=== PATIENT | female | born 1940 | race Caucasian/White ===

== ENCOUNTER 2018-08-05 15:15 | Inpatient (IN) | payer MEDICARE, OTHER ==
[2018-08-05 16:09] LABS: ADD MAN DIFF? NO
[2018-08-05 16:12] LABS: ABNORMAL IP MESSAGE 1; BASOPHILS % 0.3 % (0.0-2.0); EOSINOPHILS % 0.2 % (0.0-7.0); HEMATOCRIT 38.9 % (37.0-47.0); HEMOGLOBIN 10.8 g/dl (12.0-16.0); LYMPHOCYTES # 1.4 10^3/ul (0.8-2.9); LYMPHOCYTES % 12.7 % (15.0-51.0); MEAN CORPUSCULAR HEMOGLOBIN 28.3 pg (29.0-33.0); MEAN CORPUSCULAR HGB CONC 27.8 g/dl (32.0-37.0); MEAN CORPUSCULAR VOLUME 102.1 fl (82.0-101.0); MEAN PLATELET VOLUME 10.1 fl (7.4-10.4); MONOCYTES % 8.6 % (0.0-11.0); NEUTROPHIL # 8.8 10^3/ul (1.6-7.5); NEUTROPHILS % 77.4 % (39.0-77.0); NUCLEATED RED BLOOD CELLS% 0.3 /100WBC (0.0-0.0); PLATELET COUNT 309 10^3/UL (140-415); RED BLOOD COUNT 3.81 10^6/ul (4.20-5.40); RED CELL DISTRIBUTION WIDTH 14.3 % (11.5-14.5)
[2018-08-05 16:12] LABS: WHITE BLOOD COUNT 11.4 10^3/ul (4.8-10.8)
[2018-08-05 16:17] LABS: BLOOD UREA NITROGEN 25 mg/dl (7-20); CALCIUM 9.4 mg/dl (8.4-10.2); CHLORIDE 92 mmol/L (97-110); CREATININE 0.65 mg/dl (0.44-1.00); GLUCOSE 145 mg/dl (70-220); POTASSIUM 4.1 mmol/L (3.5-5.1); SODIUM 144 mmol/L (135-144)
[2018-08-05 16:18] LABS: POSITIVE DIFF @See below
[2018-08-05] MEDS: IPRATROPIUM (NEB) 0.5 MG/2.5 ML AMP INH (16:23)
[2018-08-05] MEDS: ALBUTEROL 0.083% (NEB) 2.5 MG/3 ML AMP INH (16:23)
[2018-08-05 16:29] LABS: B-TYPE NATRIURETIC PEPTIDE 7770 PG/ML (0-450); TROPONIN-I 0.016 ng/ml (0.000-0.120)
[2018-08-05 16:34] LABS: ANION GAP 3 (5-13); CARBON DIOXIDE 49 mmol/L (21-31)
[2018-08-05 16:43] LABS: MODE NASAL CANNULA; MetHgb Venous 0.1 %; Sample Type Blood venous; Site OTHER; Venous COHb 1.3 %; Venous Fraction OxyHgb 96.4 %; Venous Oxygen Sat 97.8 mmHG (55.0-75.0)
[2018-08-05 16:53] LABS: LACTIC ACID 0.8 mmol/L (0.5-2.0)
[2018-08-05 18:05] LABS: MODE NASAL CANNULA; MetHgb Venous 0.1 %; Sample Type Blood venous; Site OTHER; Venous COHb 1.3 %; Venous Fraction OxyHgb 96.4 %; Venous Oxygen Sat 97.8 mmHG (55.0-75.0)
[2018-08-05] MEDS ORDERED: GLUCAGON 1 MG INJ IM (19:00)
[2018-08-05] MEDS ORDERED: VANCOMYCIN IV PER PHARMACY XX (19:00)
[2018-08-05] MEDS ORDERED: LORAZEPAM 2 MG INJ IV (19:00)
[2018-08-05] MEDS ORDERED: DEXTROSE 50% 50 ML SYRINGE IV ×2 (19:00)
[2018-08-05] MEDS ORDERED: NITROGLYCERIN (SL) 0.4 MG TAB SL (19:00)
[2018-08-05] MEDS ORDERED: GLUCOSE GEL 15 GRAM TUBE PO ×2 (19:00)
[2018-08-05] MEDS ORDERED: NACL 0.9% 3 ML SYG IV (19:00)
[2018-08-05] MEDS ORDERED: ACETAMINOPHEN 325 MG TAB PO ×2 (19:00)
[2018-08-05] MEDS ORDERED: GLUCOSE GEL 15 GRAM TUBE BUCCAL (19:00)
[2018-08-05] MEDS ORDERED: DOCUSATE SODIUM 100 MG CAP PO (19:00)
[2018-08-05] MEDS ORDERED: morphine 2 MG INJ IV (19:00)
[2018-08-05] MEDS ORDERED: ONDANSETRON 4 MG INJ IV ×3 (19:00→22:00)
[2018-08-05] MEDS ORDERED: ALBUTEROL/IPRATROPIUM (NEB) 3 ML AMP HHN (19:00)
[2018-08-05] MEDS ORDERED: MAGNESIUM HYDROXIDE 30ML CUP PO (19:00)
[2018-08-05 19:08] LABS: LACTIC ACID 1.3 mmol/L (0.5-2.0)
[2018-08-05 19:14] LABS: FREE T4 (FREE THYROXINE) 0.78 ng/dl (0.78-2.44)
[2018-08-05] MEDS: PIPER-TAZO 2.25 GM (PMX) 50 ML IVPB (19:27)
[2018-08-05 19:34] LABS: AADO2 Arterial 56.2 mmHg (7.0-24.0); Allen Test ACCEPTAB; Arterial Base Excess 20.1 mmol/L (-3.0-3); Arterial Blood Gas Oxygen Sat 94.4 mmHG (95.0-100.0); Arterial COHb 1.1 % (0.0-3.0); Arterial Fraction of Oxyhgb 93.4 % (93.0-99.0); Arterial HCO3 48.7 mmol/L (22.0-26.0); Arterial MetHb 0 % (0.0-1.5); Arterial pCO2 80.1 mmhg (35-45); Blood Gas IEPAP 18/5; MODE MASK - BIPAP; Site Left Radial
[2018-08-05] MEDS: HYDROCODONE/APAP (5/325) TAB PO (19:37)
[2018-08-05] MEDS: SOD CHLORIDE 0.45% 1,000 ML IV (19:38)
[2018-08-05] MEDS ORDERED: NON-FORMULARY/PATIENT OWN MED (Lactobacillus Acidophilus/Pect (Acidophilus-Pectin Capsule) PO (21:00)
[2018-08-05] MEDS ORDERED: INSULIN GLARGINE [LANtus] 3 ML PEN SC (21:00)
[2018-08-05] MEDS: LACTOBACILLUS RHAMNOSUS CAP PO (22:46)
[2018-08-05] MEDS: ATORVASTATIN 20 MG TAB PO (22:46)
[2018-08-05] MEDS: APIXABAN 5 MG TABLET PO (22:46)
[2018-08-05] MEDS: INSULIN ASPART [NOVOLOG] 3 ML PEN SC (22:58)
[2018-08-05] MEDS: VANCOMYCIN HCL 2 GM in SOD CHLORIDE 0.9% 500 ML IVPB (23:11)
[2018-08-05] MEDS: INSULIN GLARGINE [LANTus] (100 UNITS/ML) SYG SC (23:24)
[2018-08-05] MEDS: DEXTROSE 5%-0.45% NACL 1,000 ML IV (23:48)
[2018-08-06] MEDS: PIPER-TAZO 2.25 GM (PMX) 50 ML IVPB ×5 (00:51→23:43)
[2018-08-06] MEDS: INSULIN ASPART [NOVOLOG] 3 ML PEN SC ×6 (00:56→21:31)
[2018-08-06] MEDS: ACCU-CHEK XX (02:00)
[2018-08-06] MEDS: LEVOTHYROXINE 25 MCG TAB PO (06:15)
[2018-08-06 06:54] LABS: ADD MAN DIFF? NO
[2018-08-06 06:56] LABS: ABNORMAL IP MESSAGE 1; BASOPHILS % 0.3 % (0.0-2.0); EOSINOPHILS % 0.4 % (0.0-7.0); HEMATOCRIT 35.3 % (37.0-47.0); HEMOGLOBIN 9.7 g/dl (12.0-16.0); LYMPHOCYTES # 1.3 10^3/ul (0.8-2.9); LYMPHOCYTES % 14.7 % (15.0-51.0); MEAN CORPUSCULAR HEMOGLOBIN 28.1 pg (29.0-33.0); MEAN CORPUSCULAR HGB CONC 27.5 g/dl (32.0-37.0); MEAN CORPUSCULAR VOLUME 102.3 fl (82.0-101.0); MEAN PLATELET VOLUME 10.1 fl (7.4-10.4); MONOCYTE # 0.8 10^3/ul (0.3-0.9); MONOCYTES % 9.2 % (0.0-11.0); NEUTROPHIL # 6.8 10^3/ul (1.6-7.5); PLATELET COUNT 282 10^3/UL (140-415); RED BLOOD COUNT 3.45 10^6/ul (4.20-5.40); RED CELL DISTRIBUTION WIDTH 14.2 % (11.5-14.5)
[2018-08-06 06:56] LABS: WHITE BLOOD COUNT 9.1 10^3/ul (4.8-10.8)
[2018-08-06 07:08] LABS: POSITIVE DIFF @See below
[2018-08-06 07:18] LABS: CHOLESTEROL 133 mg/dl (100-200)
[2018-08-06 07:18] LABS: CHOL/HDL RATIO 1.9 RATIO; HDL CHOLESTEROL 70 mg/dl (33-92); LDL CHOLESTEROL,CALCULATED 46 mg/dl; TRIGLYCERIDES 86 mg/dl (0-149)
[2018-08-06 07:28] LABS: BLOOD UREA NITROGEN 24 mg/dl (7-20); CALCIUM 8.9 mg/dl (8.4-10.2); CHLORIDE 95 mmol/L (97-110); GLUCOSE 129 mg/dl (70-220); MAGNESIUM 2.1 mg/dl (1.7-2.5); PHOSPHORUS 3.3 mg/dl (2.5-4.9); POTASSIUM 3.8 mmol/L (3.5-5.1); SODIUM 144 mmol/L (135-144)
[2018-08-06 07:44] LABS: HEMOGLOBIN A1C 6.2 % (0-5.9)
[2018-08-06 07:59] LABS: ANION GAP 2 (5-13); CARBON DIOXIDE 47 mmol/L (21-31)
[2018-08-06] MEDS ORDERED: NA PHOSPHATE/BIPHOS 133 ML ENEMA PR (09:00)
[2018-08-06] MEDS ORDERED: NON-FORMULARY/PATIENT OWN MED (Amino Acids/Protein Hydrolys (Pro-Stat Liquid) 30 ML) PO (09:00)
[2018-08-06] MEDS: APIXABAN 5 MG TABLET PO ×2 (09:01→20:47)
[2018-08-06] MEDS: predniSONE 10 MG TAB PO (09:01)
[2018-08-06] MEDS: CHOLECALCIFEROL 1,000 UNIT TAB PO (09:01)
[2018-08-06] MEDS: FAMOTIDINE 20 MG TAB PO (09:01)
[2018-08-06] MEDS: ASCORBIC ACID 500 MG TAB PO (09:01)
[2018-08-06] MEDS: LACTOBACILLUS RHAMNOSUS CAP PO ×2 (09:02→20:47)
[2018-08-06] MEDS: MULTIVITAMINS/MINERALS TAB PO (09:02)
[2018-08-06] MEDS: ASPIRIN (EC) 81 MG TAB PO (11:24)
[2018-08-06 14:17] LABS: ADD UMIC YES; UR ASCORBIC ACID 40 mg/dL (NEGATIVE); UR BACTERIA FEW /HPF (NONE SEEN); UR BILIRUBIN (Dip) NEGATIVE (NEGATIVE); UR BLOOD (Dip) 3+ mg/dL (NEGATIVE); UR CLARITY CLOUDY (CLEAR); UR COLOR AMBER (YELLOW); UR GLUCOSE (Dip) NEGATIVE (NEGATIVE); UR KETONES (Dip) NEGATIVE (NEGATIVE); UR LEUKOCYTE ESTERASE (Dip) 2+ Leu/ul (NEGATIVE); UR NITRITE (Dip) NEGATIVE (NEGATIVE); UR RBC > 182 /HPF (0-5); UR SPECIFIC GRAVITY (Dip) 1.019 (1.003-1.030); UR SQUAMOUS EPITHELIAL CELL FEW /HPF (FEW); UR TOTAL PROTEIN (Dip) 1+ mg/dl (NEGATIVE); UR UROBILINOGEN (Dip) NEGATIVE (NEGATIVE); UR WBC 132 /HPF (0-5)
[2018-08-06] MEDS: ATORVASTATIN 20 MG TAB PO (20:47)
[2018-08-06] MEDS: INSULIN GLARGINE [LANTus] (100 UNITS/ML) SYG SC (21:31)
[2018-08-07] MEDS: VANCOMYCIN HCL 1.5 GM in SOD CHLORIDE 0.9% 250 ML IVPB (00:46)
[2018-08-07] MEDS: ACCU-CHEK XX (02:41)
[2018-08-07] MEDS: PIPER-TAZO 2.25 GM (PMX) 50 ML IVPB ×2 (06:06→12:42)
[2018-08-07] MEDS: LEVOTHYROXINE 25 MCG TAB PO (06:06)
[2018-08-07 06:44] LABS: ADD MAN DIFF? NO
[2018-08-07 06:48] LABS: WHITE BLOOD COUNT 9.4 10^3/ul (4.8-10.8)
[2018-08-07 06:48] LABS: ABNORMAL IP MESSAGE 1; BASOPHILS % 0.4 % (0.0-2.0); EOSINOPHILS # 0.1 10^3/ul (0.0-0.5); EOSINOPHILS % 0.7 % (0.0-7.0); HEMATOCRIT 35.3 % (37.0-47.0); HEMOGLOBIN 9.7 g/dl (12.0-16.0); LYMPHOCYTES # 1.5 10^3/ul (0.8-2.9); LYMPHOCYTES % 15.9 % (15.0-51.0); MEAN CORPUSCULAR HEMOGLOBIN 27.9 pg (29.0-33.0); MEAN CORPUSCULAR HGB CONC 27.5 g/dl (32.0-37.0); MEAN CORPUSCULAR VOLUME 101.4 fl (82.0-101.0); MONOCYTE # 0.8 10^3/ul (0.3-0.9); MONOCYTES % 8.9 % (0.0-11.0); NEUTROPHIL # 6.9 10^3/ul (1.6-7.5); NEUTROPHILS % 73.7 % (39.0-77.0); PLATELET COUNT 301 10^3/UL (140-415); RED BLOOD COUNT 3.48 10^6/ul (4.20-5.40); RED CELL DISTRIBUTION WIDTH 14.2 % (11.5-14.5)
[2018-08-07 06:50] LABS: POSITIVE DIFF @See below
[2018-08-07 07:08] LABS: BLOOD UREA NITROGEN 21 mg/dl (7-20); CALCIUM 8.9 mg/dl (8.4-10.2); CHLORIDE 95 mmol/L (97-110); CREATININE 0.65 mg/dl (0.44-1.00); GLUCOSE 101 mg/dl (70-220); POTASSIUM 4.4 mmol/L (3.5-5.1); SODIUM 144 mmol/L (135-144)
[2018-08-07 07:16] LABS: ANION GAP 7 (5-13)
[2018-08-07 07:19] LABS: CARBON DIOXIDE 42 mmol/L (21-31)
[2018-08-07] MEDS: INSULIN ASPART [NOVOLOG] 3 ML PEN SC ×4 (07:25→21:00)
[2018-08-07] MEDS: APIXABAN 5 MG TABLET PO ×2 (08:38→21:51)
[2018-08-07] MEDS: CHOLECALCIFEROL 1,000 UNIT TAB PO (08:38)
[2018-08-07] MEDS: ASCORBIC ACID 500 MG TAB PO (08:38)
[2018-08-07] MEDS: MULTIVITAMINS/MINERALS TAB PO (08:38)
[2018-08-07] MEDS: hydrALAzine 20 MG INJ IV (08:39)
[2018-08-07] MEDS: ASPIRIN (EC) 81 MG TAB PO (08:39)
[2018-08-07] MEDS: predniSONE 10 MG TAB PO (08:39)
[2018-08-07] MEDS: FAMOTIDINE 20 MG TAB PO (08:39)
[2018-08-07] MEDS: LACTOBACILLUS RHAMNOSUS CAP PO ×2 (08:39→21:51)
[2018-08-07] MEDS: ATORVASTATIN 20 MG TAB PO (21:51)
[2018-08-07] MEDS: INSULIN GLARGINE [LANTus] (100 UNITS/ML) SYG SC (22:07)
[2018-08-08] MEDS: ACCU-CHEK XX (02:00)
[2018-08-08] MEDS: LEVOTHYROXINE 25 MCG TAB PO (06:11)
[2018-08-08 06:52] LABS: ADD MAN DIFF? NO
[2018-08-08 06:58] LABS: ABNORMAL IP MESSAGE 1; BASOPHIL # 0.1 10^3/ul (0.0-0.1); BASOPHILS % 0.5 % (0.0-2.0); EOSINOPHILS # 0.1 10^3/ul (0.0-0.5); EOSINOPHILS % 0.5 % (0.0-7.0); HEMATOCRIT 37.6 % (37.0-47.0); HEMOGLOBIN 10.3 g/dl (12.0-16.0); LYMPHOCYTES # 1.1 10^3/ul (0.8-2.9); MEAN CORPUSCULAR HEMOGLOBIN 27.8 pg (29.0-33.0); MEAN CORPUSCULAR HGB CONC 27.4 g/dl (32.0-37.0); MEAN CORPUSCULAR VOLUME 101.3 fl (82.0-101.0); MEAN PLATELET VOLUME 9.7 fl (7.4-10.4); MONOCYTE # 0.7 10^3/ul (0.3-0.9); MONOCYTES % 7.2 % (0.0-11.0); NEUTROPHIL # 7.7 10^3/ul (1.6-7.5); NEUTROPHILS % 80.3 % (39.0-77.0); PLATELET COUNT 369 10^3/UL (140-415); RED BLOOD COUNT 3.71 10^6/ul (4.20-5.40); RED CELL DISTRIBUTION WIDTH 14.2 % (11.5-14.5)
[2018-08-08 06:58] LABS: WHITE BLOOD COUNT 9.6 10^3/ul (4.8-10.8)
[2018-08-08 07:01] LABS: POSITIVE DIFF @See below
[2018-08-08 07:28] LABS: BLOOD UREA NITROGEN 23 mg/dl (7-20); CHLORIDE 90 mmol/L (97-110); CREATININE 0.67 mg/dl (0.44-1.00); GLUCOSE 133 mg/dl (70-220); POTASSIUM 3.7 mmol/L (3.5-5.1); SODIUM 144 mmol/L (135-144)
[2018-08-08 07:46] LABS: ANION GAP 7 (5-13)
[2018-08-08 07:48] LABS: CARBON DIOXIDE 47 mmol/L (21-31)
[2018-08-08] MEDS: INSULIN ASPART [NOVOLOG] 3 ML PEN SC ×4 (08:16→20:33)
[2018-08-08] MEDS: FAMOTIDINE 20 MG TAB PO (08:23)
[2018-08-08] MEDS: APIXABAN 5 MG TABLET PO ×2 (08:23→20:25)
[2018-08-08] MEDS: MULTIVITAMINS/MINERALS TAB PO (08:23)
[2018-08-08] MEDS: ASCORBIC ACID 500 MG TAB PO (08:24)
[2018-08-08] MEDS: predniSONE 10 MG TAB PO (08:24)
[2018-08-08] MEDS: ASPIRIN (EC) 81 MG TAB PO (08:24)
[2018-08-08] MEDS: LACTOBACILLUS RHAMNOSUS CAP PO ×2 (08:24→20:25)
[2018-08-08] MEDS: CHOLECALCIFEROL 1,000 UNIT TAB PO (08:24)
[2018-08-08 09:36] LABS: Allen Test ACCEPTAB; Arterial Base Excess 20.9 mmol/L (-3.0-3); Arterial Blood Gas Oxygen Sat 95.3 mmHG (95.0-100.0); Arterial COHb 0.8 % (0.0-3.0); Arterial Fraction of Oxyhgb 94.3 % (93.0-99.0); Arterial HCO3 53.5 mmol/L (22.0-26.0); Arterial MetHb 0.2 % (0.0-1.5); Arterial pCO2 126.5 mmhg (35-45); MODE NASAL CANNULA; Site Right Radial
[2018-08-08 17:04] LABS: AADO2 Arterial 54.2 mmHg (7.0-24.0); Allen Test ACCEPTAB; Arterial Base Excess 22.8 mmol/L (-3.0-3); Arterial Blood Gas Oxygen Sat 93.7 mmHG (95.0-100.0); Arterial COHb 1.1 % (0.0-3.0); Arterial Fraction of Oxyhgb 92.5 % (93.0-99.0); Arterial HCO3 51.3 mmol/L (22.0-26.0); Arterial MetHb 0.2 % (0.0-1.5); Arterial pCO2 81.1 mmhg (35-45); Blood Gas IEPAP 18/5; Blood Gas PS 13; MODE MASK - BIPAP; Site Left Radial
[2018-08-08] MEDS: ATORVASTATIN 20 MG TAB PO (20:25)
[2018-08-08] MEDS: INSULIN GLARGINE [LANTus] (100 UNITS/ML) SYG SC (21:00)
[2018-08-09] MEDS: ACCU-CHEK XX (02:08)
[2018-08-09 04:59] LABS: ADD MAN DIFF? NO
[2018-08-09 05:01] LABS: WHITE BLOOD COUNT 7.9 10^3/ul (4.8-10.8)
[2018-08-09 05:01] LABS: ABNORMAL IP MESSAGE 1; BASOPHILS % 0.1 % (0.0-2.0); EOSINOPHILS # 0.1 10^3/ul (0.0-0.5); EOSINOPHILS % 0.9 % (0.0-7.0); HEMATOCRIT 34.3 % (37.0-47.0); HEMOGLOBIN 9.9 g/dl (12.0-16.0); LYMPHOCYTES # 1.6 10^3/ul (0.8-2.9); LYMPHOCYTES % 19.9 % (15.0-51.0); MEAN CORPUSCULAR HEMOGLOBIN 28.3 pg (29.0-33.0); MEAN CORPUSCULAR HGB CONC 28.9 g/dl (32.0-37.0); MEAN PLATELET VOLUME 9.4 fl (7.4-10.4); MONOCYTE # 0.6 10^3/ul (0.3-0.9); MONOCYTES % 7.3 % (0.0-11.0); NEUTROPHIL # 5.7 10^3/ul (1.6-7.5); NEUTROPHILS % 71.4 % (39.0-77.0); PLATELET COUNT 341 10^3/UL (140-415); RED CELL DISTRIBUTION WIDTH 13.9 % (11.5-14.5)
[2018-08-09 05:03] LABS: POSITIVE DIFF @See below
[2018-08-09 05:18] LABS: BLOOD UREA NITROGEN 23 mg/dl (7-20); CHLORIDE 89 mmol/L (97-110); CREATININE 0.67 mg/dl (0.44-1.00); GLUCOSE 76 mg/dl (70-220); POTASSIUM 3.3 mmol/L (3.5-5.1); SODIUM 143 mmol/L (135-144)
[2018-08-09 05:56] LABS: ANION GAP 7 (5-13); CARBON DIOXIDE 47 mmol/L (21-31)
[2018-08-09] MEDS: LEVOTHYROXINE 25 MCG TAB PO (07:00)
[2018-08-09] MEDS: INSULIN ASPART [NOVOLOG] 3 ML PEN SC ×4 (07:05→21:00)
[2018-08-09] MEDS: ASPIRIN (EC) 81 MG TAB PO (08:18)
[2018-08-09] MEDS: ASCORBIC ACID 500 MG TAB PO (08:18)
[2018-08-09] MEDS: MULTIVITAMINS/MINERALS TAB PO (08:18)
[2018-08-09] MEDS: APIXABAN 5 MG TABLET PO ×2 (08:18→21:07)
[2018-08-09] MEDS: LACTOBACILLUS RHAMNOSUS CAP PO ×2 (08:18→21:07)
[2018-08-09] MEDS: FAMOTIDINE 20 MG TAB PO (08:18)
[2018-08-09] MEDS: predniSONE 10 MG TAB PO (08:18)
[2018-08-09] MEDS: CHOLECALCIFEROL 1,000 UNIT TAB PO (08:19)
[2018-08-09] MEDS: POTASSIUM CHLORIDE 20 MEQ POWDER FOR ORAL SOLN PO (09:42)
[2018-08-09] MEDS ORDERED: morphine LIQ (10 MG/5 ML) CUP PO (11:00)
[2018-08-09] MEDS: CEFTRIAXONE 1 GM/50 ML (PMX) 50 ML IVPB (21:07)
[2018-08-09] MEDS: ATORVASTATIN 20 MG TAB PO (21:07)
[2018-08-09] MEDS: INSULIN GLARGINE [LANTus] (100 UNITS/ML) SYG SC (21:12)
[2018-08-10] MEDS: ACCU-CHEK XX (01:14)
[2018-08-10 05:18] LABS: ADD MAN DIFF? NO
[2018-08-10 05:20] LABS: BASOPHILS % 0.4 % (0.0-2.0); EOSINOPHILS # 0.1 10^3/ul (0.0-0.5); EOSINOPHILS % 0.7 % (0.0-7.0); HEMATOCRIT 35.8 % (37.0-47.0); HEMOGLOBIN 10.5 g/dl (12.0-16.0); LYMPHOCYTES # 1.4 10^3/ul (0.8-2.9); LYMPHOCYTES % 18.3 % (15.0-51.0); MEAN CORPUSCULAR HGB CONC 29.3 g/dl (32.0-37.0); MEAN CORPUSCULAR VOLUME 95.5 fl (82.0-101.0); MEAN PLATELET VOLUME 9.4 fl (7.4-10.4); MONOCYTE # 0.7 10^3/ul (0.3-0.9); NEUTROPHIL # 5.3 10^3/ul (1.6-7.5); NEUTROPHILS % 71.2 % (39.0-77.0); PLATELET COUNT 372 10^3/UL (140-415); RED BLOOD COUNT 3.75 10^6/ul (4.20-5.40); RED CELL DISTRIBUTION WIDTH 14.1 % (11.5-14.5)
[2018-08-10 05:20] LABS: WHITE BLOOD COUNT 7.4 10^3/ul (4.8-10.8)
[2018-08-10] MEDS: LEVOTHYROXINE 25 MCG TAB PO (05:22)
[2018-08-10 06:05] LABS: BLOOD UREA NITROGEN 25 mg/dl (7-20); CALCIUM 8.9 mg/dl (8.4-10.2); CHLORIDE 88 mmol/L (97-110); GLUCOSE 84 mg/dl (70-220); POTASSIUM 3.3 mmol/L (3.5-5.1); SODIUM 142 mmol/L (135-144)
[2018-08-10] MEDS: INSULIN ASPART [NOVOLOG] 3 ML PEN SC ×3 (07:05→17:05)
[2018-08-10 08:36] LABS: ANION GAP 8 (5-13)
[2018-08-10 08:37] LABS: CARBON DIOXIDE 46 mmol/L (21-31)
[2018-08-10] MEDS: CHOLECALCIFEROL 1,000 UNIT TAB PO (11:09)
[2018-08-10] MEDS: ASPIRIN (EC) 81 MG TAB PO (11:09)
[2018-08-10] MEDS: MODAFINIL 200 MG TAB PO (11:09)
[2018-08-10] MEDS: predniSONE 10 MG TAB PO (11:09)
[2018-08-10] MEDS: LACTOBACILLUS RHAMNOSUS CAP PO (11:10)
[2018-08-10] MEDS: MULTIVITAMINS/MINERALS TAB PO (11:10)
[2018-08-10] MEDS: FAMOTIDINE 20 MG TAB PO (11:10)
[2018-08-10] MEDS: APIXABAN 5 MG TABLET PO (11:10)
[2018-08-10] MEDS: ASCORBIC ACID 500 MG TAB PO (11:12)
== END 2018-08-10 19:59 | DRG 193 ==
LOC: ICU 08-08 10:45 → E/R 15:15 → TEL 18:36
PROC: 5A09457 Assistance with Respiratory Ventilation, 24-96 Consecutive Hours, Continuous Positive Airway Pressure (ICD-10-PCS; principal; 2018-08-05)
DX: J18.9 Pneumonia, unspecified organism (principal); J96.21 Acute and chronic respiratory failure with hypoxia; J96.22 Acute and chronic respiratory failure with hypercapnia; N39.0 Urinary tract infection, site not specified; E66.2 Morbid (severe) obesity with alveolar hypoventilation; Z68.41 Body mass index [BMI] 40.0-44.9, adult; I11.0 Hypertensive heart disease with heart failure; J44.9 Chronic obstructive pulmonary disease, unspecified; I48.0 Paroxysmal atrial fibrillation; I50.9 Heart failure, unspecified; F01.50 Vascular dementia, unspecified severity, without behavioral disturbance, psychotic disturbance, mood disturbance, and anxiety; E11.9 Type 2 diabetes mellitus without complications; E03.9 Hypothyroidism, unspecified; B96.20 Unspecified Escherichia coli [E. coli] as the cause of diseases classified elsewhere; Z79.4 Long term (current) use of insulin; Z79.82 Long term (current) use of aspirin; Z87.891 Personal history of nicotine dependence
CPT/HCPCS: 36415; 36600; 71045; 80048; 80061; 81001; 82803; 82962; 83036; 83605; 83735; 83880; 84100; 84439; 84443; 84484; 85025; 87040-91; 87081; 87086; 92526; 92610; 93005; 93306; 94660; 94664; 97162; 97164; 97530; 99291-25

== ENCOUNTER 2018-09-24 23:01 | Inpatient (IN) | payer MEDICARE, OTHER ==
[2018-09-24 23:45] LABS: Allen Test ACCEPTAB; Arterial Base Excess 13.2 mmol/L (-3.0-3); Arterial Blood Gas Oxygen Sat 95.6 mmHG (95.0-100.0); Arterial COHb 1.2 % (0.0-3.0); Arterial Fraction of Oxyhgb 94.3 % (93.0-99.0); Arterial HCO3 46.8 mmol/L (22.0-26.0); Arterial MetHb 0.2 % (0.0-1.5); Arterial pCO2 127.9 mmhg (35-45); MODE NASAL CANNULA; Site Right Brachial
[2018-09-24 23:52] LABS: ADD MAN DIFF? NO
[2018-09-24 23:56] LABS: WHITE BLOOD COUNT 11.3 10^3/ul (4.8-10.8)
[2018-09-24 23:56] LABS: ABNORMAL IP MESSAGE 1; BASOPHILS % 0.4 % (0.0-2.0); EOSINOPHILS % 0.4 % (0.0-7.0); HEMATOCRIT 42.6 % (37.0-47.0); HEMOGLOBIN 11.9 g/dl (12.0-16.0); LYMPHOCYTES # 1.8 10^3/ul (0.8-2.9); LYMPHOCYTES % 15.7 % (15.0-51.0); MEAN CORPUSCULAR HEMOGLOBIN 27.4 pg (29.0-33.0); MEAN CORPUSCULAR HGB CONC 27.9 g/dl (32.0-37.0); MEAN CORPUSCULAR VOLUME 98.2 fl (82.0-101.0); MEAN PLATELET VOLUME 8.9 fl (7.4-10.4); MONOCYTE # 0.9 10^3/ul (0.3-0.9); NEUTROPHIL # 8.5 10^3/ul (1.6-7.5); NEUTROPHILS % 75.1 % (39.0-77.0); PLATELET COUNT 445 10^3/UL (140-415); RED BLOOD COUNT 4.34 10^6/ul (4.20-5.40); RED CELL DISTRIBUTION WIDTH 13.2 % (11.5-14.5)
[2018-09-25 00:01] LABS: POSITIVE DIFF @See below
[2018-09-25] MEDS: ONDANSETRON 4 MG INJ IV ×2 (00:07→01:49)
[2018-09-25 00:17] LABS: ALANINE AMINOTRANSFERASE 18 IU/L (13-69); ALBUMIN 3.8 g/dl (3.3-4.9); ALBUMIN/GLOBULIN RATIO 1.11; ALKALINE PHOSPHATASE 62 IU/L (42-121); ASPARTATE AMINO TRANSFERASE 12 IU/L (15-46); BILIRUBIN,INDIRECT 0.4 mg/dl (0-1.1); BILIRUBIN,TOTAL 0.4 mg/dl (0.2-1.3); BLOOD UREA NITROGEN 24 mg/dl (7-20); CALCIUM 9.1 mg/dl (8.4-10.2); CHLORIDE 94 mmol/L (97-110); CREATININE 0.81 mg/dl (0.44-1.00); GLUCOSE 129 mg/dl (70-220); INR 1.16; PARTIAL THROMBOPLASTIN TIME 32.1 Sec (23.0-35.0); POTASSIUM 4.7 mmol/L (3.5-5.1); PROTIME 14.9 Sec (11.9-14.9); PT RATIO 1.2; SODIUM 145 mmol/L (135-144); TOTAL PROTEIN 7.2 g/dl (6.1-8.1)
[2018-09-25 00:25] LABS: B-TYPE NATRIURETIC PEPTIDE 1650 PG/ML (0-450)
[2018-09-25 00:37] LABS: ANION GAP 5 (5-13); TROPONIN-I < 0.012 ng/ml (0.000-0.120)
[2018-09-25 00:39] LABS: CARBON DIOXIDE 46 mmol/L (21-31)
[2018-09-25 02:27] LABS: LACTIC ACID 0.6 mmol/L (0.5-2.0)
[2018-09-25 04:12] LABS: LACTIC ACID 0.6 mmol/L (0.5-2.0)
[2018-09-25] MEDS ORDERED: LEVALBUTEROL (NEB) 1.25 MG/0.5 ML AMP HHN (05:00)
[2018-09-25] MEDS: ALBUTEROL/IPRATROPIUM (NEB) 3 ML AMP HHN ×5 (05:00→19:59)
[2018-09-25] MEDS ORDERED: SOD CHLORIDE 0.9% 1,000 ML IV (05:27)
[2018-09-25] MEDS ORDERED: ONDANSETRON 4 MG INJ IV (05:30)
[2018-09-25] MEDS ORDERED: ACETAMINOPHEN 650MG/20.3ML CUP PO (05:30)
[2018-09-25] MEDS: METHYLPREDNISOLONE 125 MG INJ IV (05:33)
[2018-09-25 05:48] LABS: Allen Test ACCEPTAB; Arterial Base Excess 11.8 mmol/L (-3.0-3); Arterial Blood Gas Oxygen Sat 98.7 mmHG (95.0-100.0); Arterial COHb 1.3 % (0.0-3.0); Arterial Fraction of Oxyhgb 97.1 % (93.0-99.0); Arterial HCO3 45.4 mmol/L (22.0-26.0); Arterial MetHb 0.3 % (0.0-1.5); Arterial pCO2 130.2 mmhg (35-45); Blood Gas PS 15/5; MODE MASK - BIPAP; Site Left Radial
[2018-09-25] MEDS ORDERED: PANTOPRAZOLE 40 MG INJ IV (06:00)
[2018-09-25] MEDS ORDERED: FAMOTIDINE 20 MG INJ IV (09:00)
[2018-09-25] MEDS ORDERED: ALBUTEROL/IPRATROPIUM (NEB) 3 ML AMP NEB (09:00)
[2018-09-25 09:18] LABS: AADO2 Arterial 264.6 mmHg (7.0-24.0); Arterial Base Excess 11.8 mmol/L (-3.0-3); Arterial Blood Gas Oxygen Sat 99.6 mmHG (95.0-100.0); Arterial COHb 0.9 % (0.0-3.0); Arterial Fraction of Oxyhgb 98.4 % (93.0-99.0); Arterial HCO3 45.9 mmol/L (22.0-26.0); Arterial MetHb 0.3 % (0.0-1.5); Arterial pCO2 137.4 mmhg (35-45); MODE MASK - NRB; Site Right Brachial
[2018-09-25] MEDS ORDERED: GLUCOSE GEL 15 GRAM TUBE BUCCAL (09:30)
[2018-09-25] MEDS ORDERED: ACETAMINOPHEN 325 MG TAB PO (09:30)
[2018-09-25] MEDS ORDERED: GLUCOSE GEL 15 GRAM TUBE PO ×2 (09:30)
[2018-09-25] MEDS ORDERED: DEXTROSE 50% 50 ML SYRINGE IV ×2 (09:30)
[2018-09-25] MEDS ORDERED: GLUCAGON 1 MG INJ IM (09:30)
[2018-09-25 09:41] LABS: ADD UMIC YES; UR ASCORBIC ACID 40 mg/dL (NEGATIVE); UR BACTERIA FEW /HPF (NONE SEEN); UR BILIRUBIN (Dip) NEGATIVE (NEGATIVE); UR BLOOD (Dip) 3+ mg/dL (NEGATIVE); UR CALCIUM OXALATE CRYSTAL FEW /HPF (NONE SEEN); UR CLARITY TURBID (CLEAR); UR COLOR RED (YELLOW); UR GLUCOSE (Dip) NEGATIVE (NEGATIVE); UR KETONES (Dip) NEGATIVE (NEGATIVE); UR LEUKOCYTE ESTERASE (Dip) NEGATIVE Leu/ul (NEGATIVE); UR NITRITE (Dip) NEGATIVE (NEGATIVE); UR RBC > 182 /HPF (0-5); UR SPECIFIC GRAVITY (Dip) 1.021 (1.003-1.030); UR SQUAMOUS EPITHELIAL CELL FEW /HPF (FEW); UR TOTAL PROTEIN (Dip) 2+ mg/dl (NEGATIVE); UR UROBILINOGEN (Dip) NEGATIVE (NEGATIVE); UR WBC > 182 /HPF (0-5)
[2018-09-25] MEDS: ENOXAPARIN 40 MG/0.4 ML SYG SC (09:45)
[2018-09-25] MEDS: SOD CHLORIDE 0.45% 1,000 ML IV (09:46)
[2018-09-25] MEDS ORDERED: NA PHOSPHATE/BIPHOS 133 ML ENEMA PR (10:00)
[2018-09-25 11:18] LABS: CREATINE KINASE < 20 IU/L (23-200)
[2018-09-25 11:34] LABS: TROPONIN-I < 0.012 ng/ml (0.000-0.120)
[2018-09-25] MEDS: METHYLPREDNISOLONE 40 MG INJ IV ×2 (11:57→20:48)
[2018-09-25] MEDS: FUROSEMIDE 20 MG INJ IV (11:58)
[2018-09-25] MEDS ORDERED: METHYLPREDNISOLONE 40 MG INJ IV (12:00)
[2018-09-25] MEDS: CEFEPIME 1GM/50 ML (PMX) 50 ML IVPB ×2 (12:20→21:01)
[2018-09-25] MEDS: INSULIN ASPART [NOVOLOG] 3 ML PEN SC ×3 (12:23→21:00)
[2018-09-25 12:36] LABS: AADO2 Arterial 93.9 mmHg (7.0-24.0); Arterial Base Excess 13.9 mmol/L (-3.0-3); Arterial Blood Gas Oxygen Sat 93.9 mmHG (95.0-100.0); Arterial COHb 1.2 % (0.0-3.0); Arterial Fraction of Oxyhgb 92.6 % (93.0-99.0); Arterial HCO3 45.4 mmol/L (22.0-26.0); Arterial MetHb 0.2 % (0.0-1.5); Arterial pCO2 103.8 mmhg (35-45); Blood Gas IEPAP 22/5; Blood Gas PS 17; MODE MASK - BIPAP; Site Right Brachial
[2018-09-25 16:22] LABS: CREATINE KINASE < 20 IU/L (23-200)
[2018-09-25 16:30] LABS: CK-MB 0.53 ng/ml (0.0-2.4); TROPONIN-I < 0.012 ng/ml (0.000-0.120)
[2018-09-25] MEDS: LACTOBACILLUS RHAMNOSUS CAP PO (20:51)
[2018-09-25] MEDS: ATORVASTATIN 20 MG TAB PO (20:51)
[2018-09-25] MEDS: BISACODYL 10 MG SUPP PR (21:02)
[2018-09-26] MEDS: INSULIN ASPART [NOVOLOG] 3 ML PEN SC ×6 (01:00→21:00)
[2018-09-26] MEDS: ALBUTEROL/IPRATROPIUM (NEB) 3 ML AMP HHN ×6 (01:28→21:26)
[2018-09-26] MEDS: ACCU-CHEK XX (01:33)
[2018-09-26] MEDS: METHYLPREDNISOLONE 40 MG INJ IV ×4 (04:26→20:47)
[2018-09-26 05:28] LABS: ADD MAN DIFF? NO
[2018-09-26 05:32] LABS: ABNORMAL IP MESSAGE 1; HEMATOCRIT 39.8 % (37.0-47.0); HEMOGLOBIN 11.4 g/dl (12.0-16.0); LYMPHOCYTES # 0.6 10^3/ul (0.8-2.9); MEAN CORPUSCULAR HEMOGLOBIN 27.9 pg (29.0-33.0); MEAN CORPUSCULAR HGB CONC 28.6 g/dl (32.0-37.0); MEAN CORPUSCULAR VOLUME 97.3 fl (82.0-101.0); MEAN PLATELET VOLUME 9.5 fl (7.4-10.4); MONOCYTE # 0.2 10^3/ul (0.3-0.9); MONOCYTES % 2.9 % (0.0-11.0); NEUTROPHIL # 6.4 10^3/ul (1.6-7.5); NEUTROPHILS % 88.8 % (39.0-77.0); PLATELET COUNT 335 10^3/UL (140-415); RED BLOOD COUNT 4.09 10^6/ul (4.20-5.40); RED CELL DISTRIBUTION WIDTH 12.7 % (11.5-14.5)
[2018-09-26 05:32] LABS: WHITE BLOOD COUNT 7.2 10^3/ul (4.8-10.8)
[2018-09-26 05:40] LABS: HEMOGLOBIN A1C 6.4 % (0-5.9)
[2018-09-26 05:45] LABS: POSITIVE DIFF @See below
[2018-09-26 06:01] LABS: BLOOD UREA NITROGEN 38 mg/dl (7-20); CHLORIDE 94 mmol/L (97-110); CREATININE 0.78 mg/dl (0.44-1.00); GLUCOSE 118 mg/dl (70-220); SODIUM 143 mmol/L (135-144)
[2018-09-26 06:02] LABS: MAGNESIUM 2.4 mg/dl (1.7-2.5)
[2018-09-26 06:02] LABS: CHOL/HDL RATIO 2.6 RATIO; CHOLESTEROL 146 mg/dl (100-200); HDL CHOLESTEROL 55 mg/dl (33-92); LDL CHOLESTEROL,CALCULATED 52 mg/dl; TRIGLYCERIDES 197 mg/dl (0-149)
[2018-09-26 06:09] LABS: ANION GAP 10 (5-13)
[2018-09-26 06:34] LABS: THYROID STIMULATING HORMONE 0.645 MIU/L (0.465-4.680)
[2018-09-26 06:40] LABS: CARBON DIOXIDE 39 mmol/L (21-31)
[2018-09-26] MEDS: LEVOTHYROXINE 25 MCG TAB PO (07:00)
[2018-09-26 07:39] LABS: AADO2 Arterial 37.3 mmHg (7.0-24.0); Arterial Base Excess 13.5 mmol/L (-3.0-3); Arterial COHb 1.2 % (0.0-3.0); Arterial Fraction of Oxyhgb 97.6 % (93.0-99.0); Arterial HCO3 43.2 mmol/L (22.0-26.0); Arterial MetHb 0.2 % (0.0-1.5); Arterial pCO2 87.4 mmhg (35-45); Blood Gas IEPAP 22/5; Blood Gas PS 17; MODE MASK - BIPAP; Site Right Brachial
[2018-09-26] MEDS: CHOLECALCIFEROL 1,000 UNIT TAB PO (09:00)
[2018-09-26] MEDS ORDERED: NON-FORMULARY/PATIENT OWN MED (Amino Acids/Protein Hydrolys (Pro-Stat Liquid) 30 ML) PO (09:00)
[2018-09-26] MEDS: DOCUSATE SODIUM 100 MG CAP PO (09:00)
[2018-09-26] MEDS: AMIODARONE 200 MG TAB PO (09:00)
[2018-09-26] MEDS: ASCORBIC ACID 500 MG TAB PO (09:00)
[2018-09-26] MEDS: CEFEPIME 1GM/50 ML (PMX) 50 ML IVPB ×2 (09:21→20:45)
[2018-09-26] MEDS: MULTIVITAMINS/MINERALS TAB PO (09:21)
[2018-09-26] MEDS: FAMOTIDINE 20 MG TAB PO (09:21)
[2018-09-26] MEDS: ENOXAPARIN 40 MG/0.4 ML SYG SC (09:22)
[2018-09-26] MEDS: LACTOBACILLUS RHAMNOSUS CAP PO ×2 (10:16→21:00)
[2018-09-26 14:13] LABS: AADO2 Arterial 30.7 mmHg (7.0-24.0); Arterial Base Excess 12.7 mmol/L (-3.0-3); Arterial Blood Gas Oxygen Sat 94.7 mmHG (95.0-100.0); Arterial COHb 0.9 % (0.0-3.0); Arterial Fraction of Oxyhgb 93.8 % (93.0-99.0); Arterial HCO3 39.3 mmol/L (22.0-26.0); Arterial MetHb 0 % (0.0-1.5); Arterial pCO2 60.6 mmhg (35-45); Blood Gas IEPAP 15/5; Blood Gas PS 10; MODE MASK - BIPAP; Site Right Brachial
[2018-09-26] MEDS: BISACODYL 10 MG SUPP PR (20:44)
[2018-09-26] MEDS: ATORVASTATIN 20 MG TAB PO (21:00)
[2018-09-27] MEDS: INSULIN ASPART [NOVOLOG] 3 ML PEN SC ×6 (01:00→22:00)
[2018-09-27] MEDS: ALBUTEROL/IPRATROPIUM (NEB) 3 ML AMP HHN ×6 (01:03→21:17)
[2018-09-27] MEDS: ACCU-CHEK XX (02:00)
[2018-09-27] MEDS: METHYLPREDNISOLONE 40 MG INJ IV ×3 (04:00→12:26)
[2018-09-27 05:24] LABS: ADD MAN DIFF? NO
[2018-09-27 05:30] LABS: WHITE BLOOD COUNT 7.2 10^3/ul (4.8-10.8)
[2018-09-27 05:30] LABS: ABNORMAL IP MESSAGE 1; HEMATOCRIT 35.5 % (37.0-47.0); HEMOGLOBIN 10.5 g/dl (12.0-16.0); LYMPHOCYTES # 0.5 10^3/ul (0.8-2.9); LYMPHOCYTES % 7.3 % (15.0-51.0); MEAN CORPUSCULAR HEMOGLOBIN 27.5 pg (29.0-33.0); MEAN CORPUSCULAR HGB CONC 29.6 g/dl (32.0-37.0); MEAN CORPUSCULAR VOLUME 92.9 fl (82.0-101.0); MEAN PLATELET VOLUME 9.9 fl (7.4-10.4); MONOCYTE # 0.3 10^3/ul (0.3-0.9); MONOCYTES % 3.5 % (0.0-11.0); NEUTROPHIL # 6.4 10^3/ul (1.6-7.5); NEUTROPHILS % 88.8 % (39.0-77.0); PLATELET COUNT 334 10^3/UL (140-415); RED BLOOD COUNT 3.82 10^6/ul (4.20-5.40)
[2018-09-27] MEDS: LEVOTHYROXINE 25 MCG TAB PO (05:57)
[2018-09-27 06:18] LABS: POSITIVE DIFF @See below
[2018-09-27 06:21] LABS: ANION GAP 9 (5-13); BLOOD UREA NITROGEN 54 mg/dl (7-20); CALCIUM 8.9 mg/dl (8.4-10.2); CARBON DIOXIDE 39 mmol/L (21-31); CHLORIDE 94 mmol/L (97-110); CREATININE 0.81 mg/dl (0.44-1.00); GLUCOSE 148 mg/dl (70-220); POTASSIUM 4.6 mmol/L (3.5-5.1); SODIUM 142 mmol/L (135-144)
[2018-09-27 07:27] LABS: AADO2 Arterial 64.8 mmHg (7.0-24.0); Arterial Blood Gas Oxygen Sat 94.6 mmHG (95.0-100.0); Arterial COHb 0.1 % (0.0-3.0); Arterial Fraction of Oxyhgb 94.4 % (93.0-99.0); Arterial HCO3 37.7 mmol/L (22.0-26.0); Arterial MetHb 0.1 % (0.0-1.5); Arterial pCO2 61.3 mmhg (35-45); Blood Gas IEPAP 15/5; Blood Gas PS 10; MODE MASK - BIPAP; Site Right Brachial
[2018-09-27] MEDS: CHOLECALCIFEROL 1,000 UNIT TAB PO (09:00)
[2018-09-27] MEDS: FAMOTIDINE 20 MG TAB PO (09:00)
[2018-09-27] MEDS: DOCUSATE SODIUM 100 MG CAP PO ×2 (09:00→20:55)
[2018-09-27] MEDS: MULTIVITAMINS/MINERALS TAB PO (09:00)
[2018-09-27] MEDS: AMIODARONE 200 MG TAB PO (09:00)
[2018-09-27] MEDS: LACTOBACILLUS RHAMNOSUS CAP PO ×2 (09:00→20:49)
[2018-09-27] MEDS: ASCORBIC ACID 500 MG TAB PO (09:00)
[2018-09-27] MEDS: CEFEPIME 1GM/50 ML (PMX) 50 ML IVPB ×2 (09:06→20:51)
[2018-09-27] MEDS: ENOXAPARIN 40 MG/0.4 ML SYG SC (09:07)
[2018-09-27] MEDS: CARBAMIDE PEROXIDE 6.5% 15ML OTIC BOTH EARS ×2 (14:00→20:57)
[2018-09-27] MEDS: APIXABAN 5 MG TABLET PO (20:49)
[2018-09-27] MEDS: BISACODYL 10 MG SUPP PR (20:55)
[2018-09-27] MEDS: ATORVASTATIN 20 MG TAB PO (21:04)
[2018-09-28] MEDS: ALBUTEROL/IPRATROPIUM (NEB) 3 ML AMP HHN ×6 (01:32→21:07)
[2018-09-28] MEDS: ACCU-CHEK XX (01:57)
[2018-09-28 06:51] LABS: ADD MAN DIFF? NO
[2018-09-28] MEDS: LEVOTHYROXINE 25 MCG TAB PO (06:53)
[2018-09-28 07:05] LABS: WHITE BLOOD COUNT 11.6 10^3/ul (4.8-10.8)
[2018-09-28 07:05] LABS: BASOPHILS % 0.1 % (0.0-2.0); HEMATOCRIT 35.4 % (37.0-47.0); HEMOGLOBIN 10.5 g/dl (12.0-16.0); LYMPHOCYTES # 0.6 10^3/ul (0.8-2.9); LYMPHOCYTES % 5.4 % (15.0-51.0); MEAN CORPUSCULAR HEMOGLOBIN 27.2 pg (29.0-33.0); MEAN CORPUSCULAR HGB CONC 29.7 g/dl (32.0-37.0); MEAN CORPUSCULAR VOLUME 91.7 fl (82.0-101.0); MEAN PLATELET VOLUME 9.8 fl (7.4-10.4); MONOCYTE # 0.8 10^3/ul (0.3-0.9); MONOCYTES % 6.6 % (0.0-11.0); NEUTROPHIL # 10.1 10^3/ul (1.6-7.5); NEUTROPHILS % 87.5 % (39.0-77.0); PLATELET COUNT 297 10^3/UL (140-415); RED BLOOD COUNT 3.86 10^6/ul (4.20-5.40); RED CELL DISTRIBUTION WIDTH 13.1 % (11.5-14.5)
[2018-09-28 07:23] LABS: ANION GAP 3 (5-13); BLOOD UREA NITROGEN 50 mg/dl (7-20); CALCIUM 8.8 mg/dl (8.4-10.2); CARBON DIOXIDE 39 mmol/L (21-31); CHLORIDE 95 mmol/L (97-110); CREATININE 0.69 mg/dl (0.44-1.00); GLUCOSE 160 mg/dl (70-220); SODIUM 137 mmol/L (135-144)
[2018-09-28 07:32] LABS: MAGNESIUM 2.3 mg/dl (1.7-2.5)
[2018-09-28] MEDS: DOCUSATE SODIUM 100 MG CAP PO ×2 (09:00→20:40)
[2018-09-28] MEDS: MULTIVITAMINS/MINERALS TAB PO (10:04)
[2018-09-28] MEDS: FAMOTIDINE 20 MG TAB PO (10:05)
[2018-09-28] MEDS: CHOLECALCIFEROL 1,000 UNIT TAB PO (10:06)
[2018-09-28] MEDS: ASCORBIC ACID 500 MG TAB PO (10:06)
[2018-09-28] MEDS: APIXABAN 5 MG TABLET PO ×2 (10:06→20:39)
[2018-09-28] MEDS: LACTOBACILLUS RHAMNOSUS CAP PO ×2 (10:06→20:46)
[2018-09-28] MEDS: CEFEPIME 1GM/50 ML (PMX) 50 ML IVPB (10:07)
[2018-09-28] MEDS: INSULIN ASPART [NOVOLOG] 3 ML PEN SC ×7 (10:10→20:51)
[2018-09-28] MEDS: CARBAMIDE PEROXIDE 6.5% 15ML OTIC BOTH EARS ×2 (10:12→21:00)
[2018-09-28] MEDS: ERTAPENEM SODIUM 1 GM in SOD CHLORIDE 0.9% 100 ML IVPB (17:09)
[2018-09-28] MEDS: ATORVASTATIN 20 MG TAB PO (20:39)
[2018-09-28] MEDS: BISACODYL 10 MG SUPP PR (20:40)
[2018-09-29] MEDS: ALBUTEROL/IPRATROPIUM (NEB) 3 ML AMP HHN ×6 (00:18→20:36)
[2018-09-29] MEDS: ACCU-CHEK XX (01:48)
[2018-09-29 06:57] LABS: ADD MAN DIFF? NO
[2018-09-29 07:02] LABS: EOSINOPHILS % 0.5 % (0.0-7.0); HEMATOCRIT 33.8 % (37.0-47.0); HEMOGLOBIN 10.1 g/dl (12.0-16.0); LYMPHOCYTES # 1.7 10^3/ul (0.8-2.9); LYMPHOCYTES % 22.1 % (15.0-51.0); MEAN CORPUSCULAR HEMOGLOBIN 27.9 pg (29.0-33.0); MEAN CORPUSCULAR HGB CONC 29.9 g/dl (32.0-37.0); MEAN CORPUSCULAR VOLUME 93.4 fl (82.0-101.0); MEAN PLATELET VOLUME 9.9 fl (7.4-10.4); MONOCYTE # 0.7 10^3/ul (0.3-0.9); MONOCYTES % 9.7 % (0.0-11.0); NEUTROPHIL # 5.1 10^3/ul (1.6-7.5); NEUTROPHILS % 67.2 % (39.0-77.0); PLATELET COUNT 249 10^3/UL (140-415); RED BLOOD COUNT 3.62 10^6/ul (4.20-5.40); RED CELL DISTRIBUTION WIDTH 13.6 % (11.5-14.5)
[2018-09-29 07:02] LABS: WHITE BLOOD COUNT 7.6 10^3/ul (4.8-10.8)
[2018-09-29] MEDS: LEVOTHYROXINE 25 MCG TAB PO (07:26)
[2018-09-29] MEDS: INSULIN ASPART [NOVOLOG] 3 ML PEN SC ×7 (07:55→20:43)
[2018-09-29] MEDS: MULTIVITAMINS/MINERALS TAB PO (08:11)
[2018-09-29] MEDS: DOCUSATE SODIUM 100 MG CAP PO ×2 (08:11→20:43)
[2018-09-29] MEDS: APIXABAN 5 MG TABLET PO ×2 (08:11→20:42)
[2018-09-29] MEDS: ASCORBIC ACID 500 MG TAB PO (08:11)
[2018-09-29] MEDS: CHOLECALCIFEROL 1,000 UNIT TAB PO (08:11)
[2018-09-29] MEDS: FAMOTIDINE 20 MG TAB PO (08:11)
[2018-09-29] MEDS: LACTOBACILLUS RHAMNOSUS CAP PO ×2 (08:11→20:42)
[2018-09-29] MEDS: CARBAMIDE PEROXIDE 6.5% 15ML OTIC BOTH EARS ×2 (09:05→20:50)
[2018-09-29] MEDS: ERTAPENEM SODIUM 1 GM in SOD CHLORIDE 0.9% 100 ML IVPB (16:16)
[2018-09-29] MEDS: ATORVASTATIN 20 MG TAB PO (20:42)
[2018-09-29] MEDS: BISACODYL 10 MG SUPP PR (20:43)
[2018-09-30] MEDS: ALBUTEROL/IPRATROPIUM (NEB) 3 ML AMP HHN ×4 (00:36→20:49)
[2018-09-30] MEDS: ACCU-CHEK XX (01:04)
[2018-09-30] MEDS: LEVOTHYROXINE 25 MCG TAB PO (07:35)
[2018-09-30] MEDS: INSULIN ASPART [NOVOLOG] 3 ML PEN SC ×7 (07:55→20:24)
[2018-09-30] MEDS: FAMOTIDINE 20 MG TAB PO (08:17)
[2018-09-30] MEDS: CHOLECALCIFEROL 1,000 UNIT TAB PO (08:17)
[2018-09-30] MEDS: ASCORBIC ACID 500 MG TAB PO (08:17)
[2018-09-30] MEDS: MULTIVITAMINS/MINERALS TAB PO (08:17)
[2018-09-30] MEDS: APIXABAN 5 MG TABLET PO ×2 (08:17→20:23)
[2018-09-30] MEDS: LACTOBACILLUS RHAMNOSUS CAP PO ×2 (08:17→20:23)
[2018-09-30] MEDS: CARBAMIDE PEROXIDE 6.5% 15ML OTIC BOTH EARS (08:18)
[2018-09-30] MEDS: DOCUSATE SODIUM 100 MG CAP PO (08:18)
[2018-09-30] MEDS ORDERED: BISACODYL 10 MG SUPP PR (15:30)
[2018-09-30] MEDS: ERTAPENEM SODIUM 1 GM in SOD CHLORIDE 0.9% 100 ML IVPB (16:19)
[2018-09-30] MEDS: ATORVASTATIN 20 MG TAB PO (20:23)
[2018-09-30] MEDS: SENNA/DOCUSATE NA (8.6MG/50MG) TAB PO (20:24)
[2018-09-30] MEDS ORDERED: LACTOBACILLUS RHAMNOSUS CAP PO (21:00)
[2018-10-01] MEDS: ALBUTEROL/IPRATROPIUM (NEB) 3 ML AMP HHN ×4 (01:47→20:41)
[2018-10-01] MEDS: ACCU-CHEK XX (02:00)
[2018-10-01] MEDS: LEVOTHYROXINE 25 MCG TAB PO (06:03)
[2018-10-01] MEDS: INSULIN ASPART [NOVOLOG] 3 ML PEN SC ×7 (07:54→20:23)
[2018-10-01] MEDS: ASCORBIC ACID 500 MG TAB PO (08:31)
[2018-10-01] MEDS: APIXABAN 5 MG TABLET PO ×2 (08:31→20:23)
[2018-10-01] MEDS: FAMOTIDINE 20 MG TAB PO (08:31)
[2018-10-01] MEDS: LACTOBACILLUS RHAMNOSUS CAP PO ×2 (08:31→20:23)
[2018-10-01] MEDS: CHOLECALCIFEROL 1,000 UNIT TAB PO (08:31)
[2018-10-01] MEDS: MULTIVITAMINS/MINERALS TAB PO (08:31)
[2018-10-01] MEDS: ERTAPENEM SODIUM 1 GM in SOD CHLORIDE 0.9% 100 ML IVPB (17:09)
[2018-10-01] MEDS: SENNA/DOCUSATE NA (8.6MG/50MG) TAB PO (20:23)
[2018-10-01] MEDS: ATORVASTATIN 20 MG TAB PO (20:26)
[2018-10-02] MEDS: ACCU-CHEK XX (01:22)
[2018-10-02] MEDS: ALBUTEROL/IPRATROPIUM (NEB) 3 ML AMP HHN ×4 (01:45→20:08)
[2018-10-02 06:12] LABS: ADD MAN DIFF? NO
[2018-10-02] MEDS: LEVOTHYROXINE 25 MCG TAB PO (06:13)
[2018-10-02 06:22] LABS: BASOPHILS % 0.2 % (0.0-2.0); EOSINOPHILS # 0.2 10^3/ul (0.0-0.5); EOSINOPHILS % 1.2 % (0.0-7.0); HEMATOCRIT 35.7 % (37.0-47.0); HEMOGLOBIN 10.8 g/dl (12.0-16.0); LYMPHOCYTES # 1.7 10^3/ul (0.8-2.9); LYMPHOCYTES % 13.6 % (15.0-51.0); MEAN CORPUSCULAR HEMOGLOBIN 28.3 pg (29.0-33.0); MEAN CORPUSCULAR HGB CONC 30.3 g/dl (32.0-37.0); MEAN CORPUSCULAR VOLUME 93.5 fl (82.0-101.0); MEAN PLATELET VOLUME 10.7 fl (7.4-10.4); MONOCYTE # 1.1 10^3/ul (0.3-0.9); MONOCYTES % 9.2 % (0.0-11.0); NEUTROPHIL # 9.2 10^3/ul (1.6-7.5); NEUTROPHILS % 75.1 % (39.0-77.0); PLATELET COUNT 254 10^3/UL (140-415); RED BLOOD COUNT 3.82 10^6/ul (4.20-5.40); RED CELL DISTRIBUTION WIDTH 13.7 % (11.5-14.5)
[2018-10-02 06:22] LABS: WHITE BLOOD COUNT 12.2 10^3/ul (4.8-10.8)
[2018-10-02 06:58] LABS: ANION GAP 2 (5-13); BLOOD UREA NITROGEN 30 mg/dl (7-20); CALCIUM 8.8 mg/dl (8.4-10.2); CARBON DIOXIDE 38 mmol/L (21-31); CHLORIDE 100 mmol/L (97-110); CREATININE 0.63 mg/dl (0.44-1.00); GLUCOSE 128 mg/dl (70-220); POTASSIUM 4.2 mmol/L (3.5-5.1); SODIUM 140 mmol/L (135-144)
[2018-10-02] MEDS: INSULIN ASPART [NOVOLOG] 3 ML PEN SC ×7 (07:55→20:24)
[2018-10-02] MEDS: CHOLECALCIFEROL 1,000 UNIT TAB PO (08:09)
[2018-10-02] MEDS: MULTIVITAMINS/MINERALS TAB PO (08:09)
[2018-10-02] MEDS: ASCORBIC ACID 500 MG TAB PO (08:09)
[2018-10-02] MEDS: FAMOTIDINE 20 MG TAB PO (08:09)
[2018-10-02] MEDS: APIXABAN 5 MG TABLET PO ×2 (08:09→20:24)
[2018-10-02] MEDS: LACTOBACILLUS RHAMNOSUS CAP PO ×2 (08:09→20:24)
[2018-10-02] MEDS: ERTAPENEM SODIUM 1 GM in SOD CHLORIDE 0.9% 100 ML IVPB (16:33)
[2018-10-02] MEDS: SENNA/DOCUSATE NA (8.6MG/50MG) TAB PO (20:24)
[2018-10-02] MEDS: ATORVASTATIN 20 MG TAB PO (20:24)
[2018-10-03] MEDS: ALBUTEROL/IPRATROPIUM (NEB) 3 ML AMP HHN ×3 (01:00→13:39)
[2018-10-03] MEDS: ACCU-CHEK XX (02:00)
[2018-10-03] MEDS: LEVOTHYROXINE 25 MCG TAB PO (05:15)
[2018-10-03] MEDS: INSULIN ASPART [NOVOLOG] 3 ML PEN SC ×4 (07:55→11:36)
[2018-10-03] MEDS: MULTIVITAMINS/MINERALS TAB PO (09:17)
[2018-10-03] MEDS: APIXABAN 5 MG TABLET PO (09:17)
[2018-10-03] MEDS: FAMOTIDINE 20 MG TAB PO (09:17)
[2018-10-03] MEDS: LACTOBACILLUS RHAMNOSUS CAP PO (09:17)
[2018-10-03] MEDS: CHOLECALCIFEROL 1,000 UNIT TAB PO (09:17)
[2018-10-03] MEDS: ASCORBIC ACID 500 MG TAB PO (09:17)
[2018-10-03] MEDS: FUROSEMIDE 20 MG TAB PO (11:27)
[2018-10-04] MEDS ORDERED: POTASSIUM CHLORIDE (SR) 8 MEQ CAP PO (09:00)
== END 2018-10-03 14:19 | DRG 871 ==
LOC: TEL 09-27 18:07 → E/R 23:01 → ICU 09-25 04:03
PROC: 5A09357 Assistance with Respiratory Ventilation, Less than 24 Consecutive Hours, Continuous Positive Airway Pressure (ICD-10-PCS; principal; 2018-09-25)
DX: A41.9 Sepsis, unspecified organism (principal); J96.22 Acute and chronic respiratory failure with hypercapnia; J96.21 Acute and chronic respiratory failure with hypoxia; I50.33 Acute on chronic diastolic (congestive) heart failure; J18.9 Pneumonia, unspecified organism; J44.1 Chronic obstructive pulmonary disease with (acute) exacerbation; J44.0 Chronic obstructive pulmonary disease with (acute) lower respiratory infection; N13.6 Pyonephrosis; G93.49 Other encephalopathy; R11.10 Vomiting, unspecified; Z90.710 Acquired absence of both cervix and uterus; F01.50 Vascular dementia, unspecified severity, without behavioral disturbance, psychotic disturbance, mood disturbance, and anxiety; Z99.81 Dependence on supplemental oxygen; E11.9 Type 2 diabetes mellitus without complications; I11.0 Hypertensive heart disease with heart failure; I48.0 Paroxysmal atrial fibrillation; E03.9 Hypothyroidism, unspecified; D64.9 Anemia, unspecified; D69.6 Thrombocytopenia, unspecified; I25.10 Atherosclerotic heart disease of native coronary artery without angina pectoris; Z66 Do not resuscitate; Z79.01 Long term (current) use of anticoagulants; Z79.4 Long term (current) use of insulin; R31.0 Gross hematuria; Z74.01 Bed confinement status; R62.7 Adult failure to thrive; Z68.28 Body mass index [BMI] 28.0-28.9, adult
CPT/HCPCS: 36415; 36600; 70450; 71045; 74018; 74176; 80048; 80053; 80061; 81001; 82550; 82553; 82803; 82962; 83036; 83605; 83735; 83880; 84443; 84484; 85025; 85610; 85730; 87081; 87086; 92526; 92610; 93005; 94640; 94660; 96374; 96376; 97161; 97530; 99285-25